=== PATIENT | male | born 1975 | race Caucasian/White ===

== ENCOUNTER 2018-07-14 19:06 | Emergency (ER) | payer SELFPAY | END 2018-07-14 19:50 | disposition home or self-care (01) | LOC: NAV ERS 19:06 | DX: M54.5 Low back pain (principal); G44.209 Tension-type headache, unspecified, not intractable; F17.210 Nicotine dependence, cigarettes, uncomplicated; V89.2XXA Person injured in unspecified motor-vehicle accident, traffic, initial encounter | CPT/HCPCS: 99283 ==